=== PATIENT | female | born 1935 | race Caucasian/White ===

== ENCOUNTER 2021-03-20 18:13 | Inpatient (IN) ==
[2021-03-20] MEDS ORDERED: ONDANSETRON 4 MG/2 ML VIAL IV STA (18:51)
[2021-03-20] MEDS ORDERED: METOPROLOL TARTRATE 25 MG TABLET PO STA (18:53)
[2021-03-20 19:50] LABS: Basophils % 0.3 % (0.0-0.8); Eosinophils # 0.1 10*3/uL (0.0-0.87); Eosinophils % 0.6 % (0.00-10.9); Hemoglobin 12.6 GM/DL (12.0-16.0); Immature Granulocytes % 0.5 %; Immature Granulocytes Absolute 0.06 #; Lymphocytes # 2.9 10*3/uL (1.4-4.0); Lymphocytes % 25.1 % (21.3-54.2); Mean Corpuscular HGB Conc 32.3 GM/DL (32-36); Mean Corpuscular Volume 87.8 FL (87-102); Mean Platelet Volume 9.2 FL (9.6-12.0); Monocytes % 8.6 % (1.7-12.7); Neutrophils % 64.9 % (38.7-73.9); Platelet Count 295 T/CUMM (130-400); Red Blood Count 4.44 MC/CUMM (3.8-5.5); Red Cell Distribution Width 14.5 % (9.3-17.3); White Blood Count 11.5 T/CUMM (4-12)
[2021-03-20 19:59] LABS: Bacteria,Urine Occasional /HPF (Few); Bilirubin,Urine Negative (Negative); Blood, Urine Negative (Negative); Glucose,Urine (UA) Negative (Negative); Ketones,Urine Negative (Negative); Mucus,Urine Occasional /LPF (Occasional); Nitrite,Urine Positive (Negative); Protein,Urine Negative; RBC,Urine 6 /HPF (0-4); Squamous Epithelial Cell,Urine Occasional /HPF (0-10); Urine Appearance CLOUDY (Clear); Urine Color Amber (Yellow); Urine Specific Gravity 1.017 (1.001-1.035); Urine Urobilinogen < 2.0 EU/DL (0.2-1.0)
[2021-03-20 20:10] LABS: Alanine Aminotransferase 26 U/L (13-56); Albumin 3.1 G/DL (3.4-5.0); Alkaline Phosphatase 83 U/L (45-117); Aspartate Amino Transferase 23 U/L (0-37); Bilirubin,Total < 0.39 MG/DL (0.20-1.00); Blood Urea Nitrogen 21 MG/DL (7-18); Calcium 9.7 MG/DL (8.5-10.1); Carbon Dioxide 33 MMOL/L (21-32); Estimated Glom Filtration Rate 70 ML/MIN; Glucose 131 MG/DL (74-106); Osmolality,Calculated 272.2 MOS/KG (273-304); Sodium 134 MMOL/L (136-145); Total Protein 6.5 G/DL (6.4-8.2)
[2021-03-20] MEDS ORDERED: cefTRIAXone 1,000 MG in SODIUM CHLORIDE 0.9% 100 ML IV STA (20:41)
[2021-03-20] MEDS ORDERED: ONDANSETRON 4 MG/2 ML VIAL IV PRN (21:42)
[2021-03-20] MEDS ORDERED: SODIUM CHLORIDE 0.9% 1,000 ML IV SCH (22:00)
[2021-03-21] MEDS: ZALEPLON 5 MG CAPSULE PO PRN ×2 (02:03→21:40)
[2021-03-21 05:16] LABS: Basophils % 0.3 % (0.0-0.8); Eosinophils # 0.1 10*3/uL (0.0-0.87); Eosinophils % 0.8 % (0.00-10.9); Hematocrit 38.6 VOL% (35.7-47.0); Hemoglobin 12.1 GM/DL (12.0-16.0); Immature Granulocytes % 0.4 %; Immature Granulocytes Absolute 0.04 #; Lymphocytes # 3.1 10*3/uL (1.4-4.0); Lymphocytes % 29.4 % (21.3-54.2); Mean Corpuscular HGB Conc 31.3 GM/DL (32-36); Mean Corpuscular Volume 88.5 FL (87-102); Mean Platelet Volume 9.2 FL (9.6-12.0); Monocytes % 7.3 % (1.7-12.7); Neutrophils % 61.8 % (38.7-73.9); Platelet Count 292 T/CUMM (130-400); Red Blood Count 4.36 MC/CUMM (3.8-5.5); Red Cell Distribution Width 14.6 % (9.3-17.3); White Blood Count 10.4 T/CUMM (4-12)
[2021-03-21 05:41] LABS: Albumin 2.7 G/DL (3.4-5.0); Bilirubin,Total 0.6 MG/DL (0.20-1.00); Calcium 9.5 MG/DL (8.5-10.1); Osmolality,Calculated 268.4 MOS/KG (273-304); Potassium 4.3 MMOL/L (3.5-5.1); Total Protein 6.7 G/DL (6.4-8.2)
[2021-03-21] MEDS: ASPIRIN EC 81 MG TABLET PO SCH (09:23)
[2021-03-21] MEDS: lisinopriL 20 MG TABLET PO SCH ×2 (09:23→21:39)
[2021-03-21] MEDS: cefTRIAXone 1,000 MG in SODIUM CHLORIDE 0.9% 100 ML IV SCH (09:23)
[2021-03-21] MEDS: ENOXAPARIN 40 MG/0.4 ML SYRINGE SUBCUT SCH (09:23)
[2021-03-21] MEDS: FUROSEMIDE 20 MG TABLET PO SCH (09:23)
[2021-03-21] MEDS: PANTOPRAZOLE 40 MG TABLET PO SCH (09:23)
[2021-03-21] MEDS ORDERED: SKIN HEALING OINT (AQUAPHOR) 50 GM TUBE TOP PRN (14:47)
[2021-03-21] MEDS ORDERED: TUBERCULIN SKIN TEST 0.1 ML SYRINGE INTRADERM ONE (15:00)
[2021-03-21] MEDS: TRIAMCINOLONE 0.1% CREAM 15 GM TUBE TOP SCH ×2 (17:56→21:39)
[2021-03-21] MEDS ORDERED: TRIMETHOPRIM 100 MG TABLET PO SCH (21:00)
[2021-03-21] MEDS ORDERED: ALUMINUM/MAGNES/SIMETH MAX STR 30 ML UDCUP PO PRN (21:26)
[2021-03-21] MEDS: LACTULOSE 20 GM/30 ML UDCUP PO PRN (21:39)
[2021-03-22] MEDS: LACTULOSE 20 GM/30 ML UDCUP PO PRN (04:42)
[2021-03-22] MEDS: cefTRIAXone 1,000 MG in SODIUM CHLORIDE 0.9% 100 ML IV SCH (08:31)
[2021-03-22] MEDS: ENOXAPARIN 40 MG/0.4 ML SYRINGE SUBCUT SCH (08:40)
[2021-03-22] MEDS: TRIAMCINOLONE 0.1% CREAM 15 GM TUBE TOP SCH ×2 (08:40→23:10)
[2021-03-22] MEDS: MAGNESIUM HYDROXIDE SUSP 30 ML UDCUP PO PRN (09:04)
[2021-03-22] MEDS: ASPIRIN EC 81 MG TABLET PO SCH (12:08)
[2021-03-22] MEDS: lisinopriL 20 MG TABLET PO SCH ×2 (12:08→21:27)
[2021-03-22] MEDS: FUROSEMIDE 20 MG TABLET PO SCH (12:08)
[2021-03-22] MEDS: PANTOPRAZOLE 40 MG TABLET PO SCH (12:08)
[2021-03-22] MEDS: DOCUSATE SODIUM 100 MG CAPSULE PO SCH ×2 (12:08→21:27)
[2021-03-22] MEDS: ACETAMINOPHEN 325 MG TABLET PO PRN (15:30)
[2021-03-22] MEDS: ZALEPLON 5 MG CAPSULE PO PRN (21:28)
[2021-03-23 09:34] LABS: Calcium 9.4 MG/DL (8.5-10.1); Osmolality,Calculated 268.7 MOS/KG (273-304); Potassium 4.3 MMOL/L (3.5-5.1)
[2021-03-23] MEDS: cefTRIAXone 1,000 MG in SODIUM CHLORIDE 0.9% 100 ML IV SCH (09:52)
[2021-03-23] MEDS: lisinopriL 20 MG TABLET PO SCH ×2 (09:52→21:12)
[2021-03-23] MEDS: DOCUSATE SODIUM 100 MG CAPSULE PO SCH ×2 (09:53→21:12)
[2021-03-23] MEDS: PANTOPRAZOLE 40 MG TABLET PO SCH (09:53)
[2021-03-23] MEDS: FUROSEMIDE 20 MG TABLET PO SCH (09:53)
[2021-03-23] MEDS: ENOXAPARIN 40 MG/0.4 ML SYRINGE SUBCUT SCH (09:53)
[2021-03-23] MEDS: ASPIRIN EC 81 MG TABLET PO SCH (09:53)
[2021-03-23] MEDS: TRIAMCINOLONE 0.1% CREAM 15 GM TUBE TOP SCH ×2 (12:05→21:12)
[2021-03-23] MEDS: ZALEPLON 5 MG CAPSULE PO PRN (21:12)
[2021-03-24] MEDS: ACETAMINOPHEN 325 MG TABLET PO PRN (04:37)
[2021-03-24] MEDS: cefTRIAXone 1,000 MG in SODIUM CHLORIDE 0.9% 100 ML IV SCH (09:02)
[2021-03-24] MEDS: ENOXAPARIN 40 MG/0.4 ML SYRINGE SUBCUT SCH (09:06)
[2021-03-24] MEDS: TRIAMCINOLONE 0.1% CREAM 15 GM TUBE TOP SCH ×2 (09:06→20:40)
[2021-03-24] MEDS: FUROSEMIDE 20 MG TABLET PO SCH (09:07)
[2021-03-24] MEDS: amLODIPine 5 MG TABLET PO SCH (09:07)
[2021-03-24] MEDS: ASPIRIN EC 81 MG TABLET PO SCH (09:08)
[2021-03-24] MEDS: PANTOPRAZOLE 40 MG TABLET PO SCH (09:08)
[2021-03-24] MEDS: DOCUSATE SODIUM 100 MG CAPSULE PO SCH ×2 (09:08→20:41)
[2021-03-24] MEDS: lisinopriL 20 MG TABLET PO SCH ×2 (09:15→20:40)
[2021-03-24 11:46] LABS: Osmolality,Calculated 265.8 MOS/KG (273-304); Potassium 3.8 MMOL/L (3.5-5.1)
[2021-03-24] MEDS: POLYETHYLENE GLYCOL POWDER 17 GM PACK PO SCH (12:25)
[2021-03-24] MEDS: CEFEPIME 1,000 MG in SODIUM CHLORIDE 0.9% 100 ML IV SCH ×2 (12:39→18:09)
[2021-03-24] MEDS: ZALEPLON 5 MG CAPSULE PO PRN (20:41)
[2021-03-24] MEDS: MAGNESIUM HYDROXIDE SUSP 30 ML UDCUP PO PRN (20:41)
[2021-03-24] MEDS: LACTULOSE 20 GM/30 ML UDCUP PO PRN (23:10)
[2021-03-25] MEDS: CEFEPIME 1,000 MG in SODIUM CHLORIDE 0.9% 100 ML IV SCH ×2 (00:13→06:18)
[2021-03-25 06:00] LABS: Basophils % 0.3 % (0.0-0.8); Eosinophils # 0.1 10*3/uL (0.0-0.87); Eosinophils % 1.5 % (0.00-10.9); Hemoglobin 12.8 GM/DL (12.0-16.0); Immature Granulocytes % 0.4 %; Immature Granulocytes Absolute 0.04 #; Lymphocytes # 2.6 10*3/uL (1.4-4.0); Lymphocytes % 26.8 % (21.3-54.2); Mean Corpuscular Volume 87.9 FL (87-102); Mean Platelet Volume 9.4 FL (9.6-12.0); Monocytes % 9.8 % (1.7-12.7); Neutrophils % 61.2 % (38.7-73.9); Platelet Count 322 T/CUMM (130-400); Red Blood Count 4.55 MC/CUMM (3.8-5.5); Red Cell Distribution Width 14.4 % (9.3-17.3); White Blood Count 9.7 T/CUMM (4-12)
[2021-03-25 06:27] LABS: Calcium 9.3 MG/DL (8.5-10.1); Osmolality,Calculated 274.1 MOS/KG (273-304); Potassium 3.7 MMOL/L (3.5-5.1)
[2021-03-25 07:47] VITALS: BP 179/82
[2021-03-25] MEDS ORDERED: LACTULOSE 20 GM/30 ML UDCUP PO ONE (09:00)
[2021-03-25] MEDS: DOCUSATE SODIUM 100 MG CAPSULE PO SCH (09:05)
[2021-03-25] MEDS: lisinopriL 20 MG TABLET PO SCH (09:05)
[2021-03-25] MEDS: ENOXAPARIN 40 MG/0.4 ML SYRINGE SUBCUT SCH (09:05)
[2021-03-25] MEDS: PANTOPRAZOLE 40 MG TABLET PO SCH (09:05)
[2021-03-25] MEDS: ASPIRIN EC 81 MG TABLET PO SCH (09:05)
[2021-03-25] MEDS: amLODIPine 5 MG TABLET PO SCH (09:05)
[2021-03-25] MEDS: FUROSEMIDE 20 MG TABLET PO SCH (09:05)
[2021-03-25] MEDS: TRIAMCINOLONE 0.1% CREAM 15 GM TUBE TOP SCH (09:08)
[2021-03-25] MEDS: POLYETHYLENE GLYCOL POWDER 17 GM PACK PO SCH (10:31)
== END 2021-03-25 10:32 | DRG 690 ==
LOC: EDUNIT# → EDBD → N.ED 18:13 → N.EDINP 21:42 → SUATTDRO 21:42 → N.3E 03-21 00:08
PROVIDERS: ADMIT Internal Medicine; ATTEND Internal Medicine